=== PATIENT | female | born 1935 | race Caucasian/White ===

== ENCOUNTER 2021-07-24 22:36 | Inpatient (IN) | payer MEDICARE, OTHER, SELFPAY ==
--- NOTE | ~2021-07-24 | XR_ITS ---
EXAMINATION: XR chest 1V portable EXAM DATE: 07/25/2021 00:18 INDICATION: Weakness, fatigue. High blood glucose levels. TECHNIQUE: Portable AP frontal chest x-ray was obtained. Comparison is made to prior examination from 10/28/2018. FINDINGS: Small amount of apical scarring bilaterally. No confluent consolidation, pneumothorax or pl eural effusion suspected. Chronic hyperinflation. 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 Cardiomediastinal silhouette is normal. There are bony degenerative changes. IMPRESSION: Hyperinflation. No confluent consolidation. Reviewed, dictated and finalized at location A. OXIDE MILL TENDER
--- NOTE | ~2021-07-24 | US_ITS ---
EXAMINATION: US renal BI DATE: 07/25/2021 09:41 INDICATION: Acute kidney injury. TECHNIQUE: Multiple ultrasound grayscale images of the kidneys were obtained. COMPARISON: Chest CT 12/09/2018 FINDINGS: The right kidney measures 12.5 x 4.7 x 5.6 cm. The left kidney measures 11.6 x 4.9 x 5.7 cm. The kidn eys demonstrate normal parenchymal echogenicity. There are cysts in the kidneys measuring up to 1.7 c m on the left. There is no hydronephrosis. The bladder is normal. IMPRESSION: 1. Normal kidney sizes. No hydronephrosis. Reviewed, dictated and finalized at location B. MATIC BUFFER
--- NOTE | ~2021-07-24 | XR_ITS ---
EXAMINATION: XR hip LT 2V w AP pelvis DATE: 07/26/2021 09:30 INDICATION: Bilateral hip pain, left greater than right. TECHNIQUE: Anteroposterior view of the pelvis and anteroposterior and frog-leg lateral views of the l eft hip were obtained. COMPARISON: None. 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 Normal alignment in the pelvis and bilate ral hips. No fracture or suspected avascular necrosis. Osteoarthritis, mild at the bilateral hips and mild to moderate at the bilateral sacroiliac joints. Atherosclerotic calcific a cyst along the abdom inal aorta and multiple arteries in the pelvis and proximal thighs. IMPRESSION: 1. Mild bilateral hip osteoarthritis. 2. 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 2. 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 Reviewed, dictated and finalized at location A. E INSTALLER
--- NOTE | ~2021-07-24 | CT_ITS ---
EXAMINATION: CT brain wo con INDICATION: Confusion COMPARISON: 12/09/2018 TECHNIQUE: Standard unenhanced head CT. The dose-length product (DLP) was 605.33 mGy-cm. The mA was a djusted according to patient size. Iterative reconstruction technique was employed. FINDINGS: There is no acute intraparenchymal hemorrhage. No evidence of mass lesion. No evidence of a cute infarction. 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 There is mild periventric ular and subcortical hypodensity probably related to small vessel ischemic disease. There is mild pro minence of the sulci and ventricles related to cerebral atrophy. Intracranial calcified cerebral athe rosclerosis is noted. There are no extra-axial collections. There is no mass effect or midline shift. Changes in the globes are likely from ocular lens surgery. The visualized sinuses and mastoid air ce lls are well aerated. IMPRESSION: 1. No acute intracranial abnormality. 2. Age related findings. Reviewed, dictated and finalized at location F. AURANT RECRUITER
[2021-07-24 22:36] VITALS: BP 138/36; PULSE 88; RESP 26; TEMP 36.3; O2SAT 98
[2021-07-24 22:46] LABS: Glucose Point of Care > 500 mg/dl (65-105)
[2021-07-24] MEDS: SODIUM CHLORIDE 0.9% IV 1,000 ML 999 ML IV CONT ×2 (23:00→23:04)
[2021-07-24] MEDS: INSULIN HUMAN REGULAR (*BKC) 100 UNITS/ML 10 UNITS IV PUSH (23:04)
[2021-07-24 23:05] LABS: Basophils Absolute Auto 0.1 K/mm3 (0.0-0.1); Basophils Percent Auto 0.7 % (0.2-1.2); Hematocrit 35.3 % (37.0-47.0); Hemoglobin 11.8 g/dL (12.0-15.0); Immature Granulocyte Absolute 0.02 K/mm3 (0.00-0.031); Immature Granulocyte Percent A 0.3 % (0-0.5); Lymphocytes Absolute Auto 0.64 K/mm3 (0.9-3.2); Lymphocytes Percent Auto 8.9 % (18.3-44.2); Mean Corpuscular HGB Conc 33.4 g/dl (32-36); Mean Corpuscular Hemoglobin 34.6 pg (26-34); Mean Corpuscular Volume 103.5 fl (80-100); Monocytes Absolute Auto 0.2 K/mm3 (0.1-0.6); Monocytes Percent Auto 2.2 % (2.6-8.5); Neutrophils Absolute Auto 6.4 K/mm3 (1.3-6.7); Neutrophils Percent Auto 87.9 % (45.5-73.1); Platelet Count Result 346 k/mm3 (150-375); Red Blood Count 3.41 M/mm3 (4.2-5.4); Red Cell Distribution Width 15.7 % (11.5-14.5); White Blood Count 7.2 K/mm3 (4.5-10.0)
[2021-07-24 23:17] LABS: Alveolar/Arterial O2 Gradient 65.9 mmHg; Base Excess ABG -9.6 mEq/l (+/-2.0); Carboxyhemoglobin 0.3 % THb (0-2.0); Fractional Inspired Oxygen 28 %; HCO3 ABG 15.6 mEq/l (22.0-26.0); Methemoglobin ABG 0.3 %THb (0-1.5); Oxygen Content ABG 16.1 %vol (16.0-22.0); Oxygen Saturation ABG 96.8 % (95.0-100.0); Oxyhemoglobin 94.9 % THb (90.0-100.0); PO2 FiO2 Ratio Arterial Blood 3.43 %; Reduced Hemoglobin 4.5 %THb (0-5.0); pH ABG 7.306 (7.350-7.450)
[2021-07-24 23:18] LABS: Device NASAL CANNULA; Modified Allen's Test Pass; Site Drawn RIGHT RADIAL
[2021-07-24 23:20] LABS: Alanine Aminotransferase 21 U/L (4-35); Albumin Level 4.3 g/dL (3.5-5.1); Alkaline Phosphatase 62 U/L (38-126); Anion Gap 27 mmol/L (8-16); Aspartate Amino Transferase 40 U/L (14-36); Bilirubin,Total 0.7 mg/dL (0.2-1.3); Blood Urea Nitrogen 60 mg/dL (7-17); Calcium 10.9 mg/dL (8.4-10.2); Carbon Dioxide 16 mmol/L (22-30); Chloride 89 mmol/L (98-107); Estimated CRCL calculation 21 ml/min; Estimated Glomerular Filt Rate 31; Magnesium 1.4 mg/dL (1.6-2.3); Phosphorus 6.3 mg/dL (2.5-4.5); Potassium 4.6 mmol/L (3.4-5.0); Sodium 132 mmol/L (137-145)
[2021-07-24 23:25] LABS: Glucose 681 mg/dL (65-110)
[2021-07-24 23:55] LABS: Beta-Hydroxybutyrate/Acetoacetate 9.65 mmol/L (0.02-0.27)
[2021-07-24 23:59] VITALS: BP 135/52; PULSE 96; RESP 24; O2SAT 98
[2021-07-25] VITALS (13 sets, daily range): BP systolic 98–178; BP diastolic 40–93; PULSE 68–89; RESP 14–22; TEMP 36.7–37.1; O2SAT 92–98; BMI 27.8
[2021-07-25 00:11] LABS: Glucose Point of Care > 500 mg/dl (65-105)
[2021-07-25] MEDS: INSULIN HUMAN REGULAR (*BKC) 100 UNITS in SODIUM CHLORIDE 0.9% IV 99 ML 12 UNITS IV CONT (00:24)
[2021-07-25 00:30] LABS: Add Urine Microscopic? YES; Appearance Urine Clear (Clear); Bilirubin Urine Negative (Negative); Blood Urine Negative (Negative); Color Urine Yellow (Yellow); Glucose Urine UA 3+ mg/dL (Negative); Ketones Urine Trace mg/dL (Negative); Leukocyte Esterase Ur Negative LEU/UL (Negative); Mucus Urine Rare /lpf; Nitrate Urine Negative (Negative); Protein Urine Negative (Negative); RBC Urine 0-2 /hpf (0-2); Specific Grav Ur 1.011 (1.001-1.035); Squamous Epithelial Cell Urine Rare /hpf (Few); Urobilinogen Urine Negative mg/dL (<2.0); WBC Urine 0-3 /hpf
--- NOTE | 2021-07-25 00:34 | ED.GENADULT ---
HPI - General Adult General Chief complaint: Recheck/Abnormal Lab/Rx Stated complaint: elevated blood sugar Time Seen by Provider: 07/24/21 22:53 History of Present Illness HPI narrative: Patient 86-year-old female presents to emergency department with chief complaint of hyperglycemia. The family noticed that her blood sugars have been difficult to control over the last couple of days they believe that the patient's insulin may have been frozen. The patient's family know she has been weaker than normal and has had increased urination. The patient is not been running fever settled and nausea with this. Related Data Allergies Allergy/AdvReac Type Severity Reaction Status Date / Time adhesive Allergy Mild Itching Verified 02/11/20 12:50 cortisone Allergy Mild Verified 02/11/20 12:50 lactose Allergy Mild Verified 02/11/20 12:50 NSAIDS (Non-Steroidal Allergy Mild Verified 02/11/20 12:50 Anti-Inflamma Penicillins Allergy Mild Itching Verified 02/11/20 12:50 Review of Systems Review of Systems: A 10 system review of systems was completed on the patient and is negative except for what is stated in the HPI. Nursing and ancillary documentation was reviewed. Exam Narrative: GENERAL: Well-appearing, well-nourished, and in no acute distress. HEAD: Normocephalic, atraumatic. EYES: PERRLA and EOMI. ENT: Nares clear, no rhinorrhea or epistaxis. Mucous membranes moist. NECK: Supple. CHEST: Clear to auscultation. No respiratory distress. HEART: Regular rate and rhythm. No murmur heard. Normal peripheral pulses. ABDOMEN: Soft, nontender, nondistended, normal active bowel sounds. EXTREMITIES: Normal range of motion. No edema. SKIN: Warm, dry, no rash. NEURO: No focal deficits. Alert and oriented x3. PSYCH: Normal mood and affect. Course Vital Signs Vital signs: Vital Signs Temperature 36.3 C L 07/24/21 22:36 Pulse Rate 88 07/24/21 22:36 Respiratory Rate 26 H 07/24/21 22:36 Blood Pressure 138/36 L 07/24/21 22:36 Pulse Oximetry 98 07/24/21 22:36 Temperature 36.3 C L 07/24/21 22:36 Pulse Rate 96 07/24/21 23:59 Respiratory Rate 24 H 07/24/21 23:59 Blood Pressure 135/52 L 07/24/21 23:59 Pulse Oximetry 98 07/24/21 23:59 Medical Decision Making Vital Signs Vital Signs: Vital Signs Temperature 36.3 C L 07/24/21 22:36 Pulse Rate 88 07/24/21 22:36 Respiratory Rate 26 H 07/24/21 22:36 Blood Pressure 138/36 L 07/24/21 22:36 Pulse Oximetry 98 07/24/21 22:36 Temperature 36.3 C L 07/24/21 22:36 Pulse Rate 96 07/24/21 23:59 Respiratory Rate 24 H 07/24/21 23:59 Blood Pressure 135/52 L 07/24/21 23:59 Pulse Oximetry 98 07/24/21 23:59 Lab Data Result diagrams: 07/24/21 22:53 07/24/21 22:53 Labs: Lab Results 07/24/21 07/24/21 07/24/21 Range/Units 22:43 22:53 22:53 WBC 7.2 (4.5-10.0) K/mm3 RBC 3.41 L (4.2-5.4) M/mm3 Hgb 11.8 L (12.0-15.0) g/dL Hct 35.3 L (37.0-47.0) % MCV 103.5 H (80-100) fl MCH 34.6 H (26-34) pg MCHC 33.4 (32-36) g/dl RDW 15.7 H (11.5-14.5) % Plt Count 346 (150-375) k/mm3 MPV 11.0 H (7.4-10.4) fl Immature Gran % (Auto) 0.3 (0-0.5) % Neut % (Auto) 87.9 H (45.5-73.1) % Lymph % (Auto) 8.9 L (18.3-44.2) % Fountain % (Auto) 2.2 L (2.6-8.5) % Eos % (Auto) 0.0 (0-4.4) % Baso % (Auto) 0.7 (0.2-1.2) % Lymph # (Auto) 0.64 L (0.9-3.2) K/mm3 Fountain # (Auto) 0.2 (0.1-0.6) K/mm3 Eos # (Auto) 0.0 (0-0.3) K/mm3 Baso # (Auto) 0.1 (0.0-0.1) K/mm3 Abs Immat Gran (auto) 0.02 (0.00-0.031) K/mm3 Absolute Neuts (auto) 6.4 (1.3-6.7) K/mm3 Absolute Nucleated RBC 0.0 (0.0-0.012) K/mm3 Nucleated RBC % 0.0 (0.0-0.2) % Methemoglobin (0-1.5) %THb Sodium 132 L (137-145) mmol/L Potassium 4.6 (3.4-5.0) mmol/L Chloride 89 L (98-107) mmol/L Carbon Dioxide 16 L (22-30) mmol/L Anion Gap 27 H (8-16) mmol
[2021-07-25 00:46] LABS: Anion Gap 26 mmol/L (8-16); Blood Urea Nitrogen 59 mg/dL (7-17); Calcium 10.1 mg/dL (8.4-10.2); Carbon Dioxide 15 mmol/L (22-30); Chloride 94 mmol/L (98-107); Estimated CRCL calculation 24 ml/min; Estimated Glomerular Filt Rate 36; Glucose 567 mg/dL (65-110); Magnesium 1.3 mg/dL (1.6-2.3); Phosphorus 4.7 mg/dL (2.5-4.5); Potassium 3.6 mmol/L (3.4-5.0); Sodium 135 mmol/L (137-145)
[2021-07-25 00:51] LABS: Hemoglobin A1C 8.8 % (<5.7)
[2021-07-25 01:24] LABS: Glucose Point of Care > 500 mg/dl (65-105)
[2021-07-25 02:17] LABS: Glucose Point of Care 444 mg/dl (65-105)
--- NOTE | 2021-07-25 02:25 | ADMGEN ---
This patient, Atif Mendoza, was admitted to Intensive Care Unit-5. Patient/family oriented to hospital policies and general routines including ID bracelet, bed and alarms, visiting hours, pain management, procedures, bathroom and other care routines, personal items, smoking policy, room service/diet, and visiting hours. Information on how to activate the Rapid Response Team has been discussed. Patient/Family are encouraged to report perceived risks to care and to ask questions if they do not understand what they are told or what they should do.
[2021-07-25] MEDS: SODIUM CHLORIDE 0.9% IV 1,000 ML 150 ML IV CONT (02:50)
[2021-07-25 02:56] LABS: Glucose Point of Care 403 mg/dl (65-105)
[2021-07-25 04:05] LABS: Glucose Point of Care 356 mg/dl (65-105)
[2021-07-25 05:05] LABS: Anion Gap 19 mmol/L (8-16); Blood Urea Nitrogen 59 mg/dL (7-17); Calcium 10.4 mg/dL (8.4-10.2); Carbon Dioxide 22 mmol/L (22-30); Chloride 99 mmol/L (98-107); Estimated CRCL calculation 32 ml/min; Estimated Glomerular Filt Rate 43; Glucose 332 mg/dL (65-110); Potassium 3.2 mmol/L (3.4-5.0); Sodium 140 mmol/L (137-145)
[2021-07-25] MEDS: KCL 20 MEQ/D5/0.45% SOD CHL 1,000 ML 150 ML IV CONT (06:09)
[2021-07-25 06:13] LABS: Glucose Point of Care 171 mg/dl (65-105)
[2021-07-25 06:13] LABS: Glucose Point of Care 251 mg/dl (65-105)
--- NOTE | 2021-07-25 07:53 | PM.IMHP ---
H&P: HPI History of Present Illness Date/Time: 07/25/21 07:53 Chief Complaint: 1. Generalized weakness 2. High sugar Narrative: 86 years old female was admitted to the emergency room for the management of DKA in the ICU. According to the patient and review of medical records, patient was doing fine until few days ago at home when she started having increased urination, denies weakness. According to the family patient and at the insulin or her insulin was not working properly. Patient complains of having generalized weakness and high sugar at home otherwise she denies any fever or chills. Patient has mild nausea but no vomiting. Patient denies any shortness of breath or chest pain. Patient denies any exposure to COVID. Patient was given insulin the ER and IV fluids and was transferred to ICU for further management. At present patient is feeling much better and lying comfortably in the bed. Review of Systems Review of Systems: All systems reviewed & are unremarkable except as noted in HPI and below (the history and physical examination.) [facility] Social History Social History Years smoked: 65 Smoking status: Current every day smoker Tobacco type: cigarettes Alcohol intake: former Substance use: never Spiritual care concerns: No Meds Home Medications and Allergies Home Medications Medication Instructions Recorded Confirmed Type acetaminophen [Tylenol] 650 mg PO ONCE PRN 07/25/21 07/25/21 History amlodipine 2.5 mg PO DAILY 07/25/21 07/25/21 History aspirin 81 mg PO DAILY 07/25/21 07/25/21 History cholecalciferol (vitamin D3) 125 mcg PO DAILY 07/25/21 07/25/21 History [Vitamin D3] clopidogrel [Plavix] 75 mg PO DAILY 07/25/21 07/25/21 History duloxetine [Cymbalta] 20 mg PO DAILY 07/25/21 07/25/21 History fenofibrate 160 mg PO DAILY 07/25/21 07/25/21 History furosemide [Lasix] 40 mg PO DAILY 07/25/21 07/25/21 History glucosamine sulfate [Glucosamine] 500 mg PO DAILY 07/25/21 07/25/21 History insulin aspart U-100 [Novolog See Rx Instructions .ROUTE .COMPLEX 07/25/21 07/25/21 History U-100 Insulin aspart] insulin glargine [Lantus Solostar 15 unit SUBCUT QAM 07/25/21 07/25/21 History U-100 Insulin] isosorbide dinitrate [Isordil] 20 mg PO TID 07/25/21 07/25/21 History lisinopril 10 mg PO DAILY 07/25/21 07/25/21 History metformin 1,000 mg PO BID 07/25/21 07/25/21 History metoprolol tartrate [Lopressor] 50 mg PO BID 07/25/21 07/25/21 History omega-3 fatty acids [Fish Oil] 2,000 mg PO DAILY 07/25/21 07/25/21 History pregabalin [Lyrica] 75 mg PO AC 07/25/21 07/25/21 History pregabalin [Lyrica] 150 mg PO HS 07/25/21 07/25/21 History simvastatin 10 mg PO HS 07/25/21 07/25/21 History vitamin A-vitamin C-vit E-min 1 tablet PO DAILY 07/25/21 07/25/21 History [Ocuvite] Allergies Allergy/AdvReac Type Severity Reaction Status Date / Time adhesive Allergy Mild Itching Verified 02/11/20 12:50 cortisone Allergy Mild Verified 02/11/20 12:50 lactose Allergy Mild Verified 02/11/20 12:50 NSAIDS (Non-Steroidal Allergy Mild Verified 02/11/20 12:50 Anti-Inflamma Penicillins Allergy Mild Itching Verified 02/11/20 12:50 Vital Signs Vital Signs - 24 hr 07/24/21 22:36 07/24/21 23:59 07/25/21 01:56 Temperature 36.3 C L Pulse Rate 88 96 87 Respiratory Rate 26 H 24 H 18 Blood Pressure 138/36 L 135/52 L 116/42 L Pulse Oximetry 98 98 92 07/25/21 02:23 07/25/21 02:44 07/25/21 04:00 Temperature 37.1 C Pulse Rate 86 89 83 Respiratory Rate 19 20 16 Blood Pressure 140/48 L 155/61 H 132/55 L Pulse Oximetry 96 95 98 07/25/21 06:00 Temperature Pulse Rate 81 Respiratory Rate 16 Blood Pressure 110/40 L Pulse Oximetry 95 Exam Narrative: GENERAL: Well-appearing, well-nourished, and in no acute distress. HEAD: Normocephalic, atraumatic. EYES: PERRLA and EOMI. ENT: Nares clear, no rhinorrhea or epistaxis. Mucous membranes moist. NECK: Supple. CHEST: Cl
[2021-07-25 08:11] LABS: Glucose Point of Care 153 mg/dl (65-105)
[2021-07-25 08:22] LABS: Glucose Point of Care 138 mg/dl (65-105)
--- NOTE | 2021-07-25 09:03 | WPDCNINT ---
Assessment and Plan Assessment and plan (1) DKA (diabetic ketoacidosis): Qualifiers: Diabetes mellitus complication detail: without coma Diabetes mellitus type: other specified (including AUDREY) Qualified Code(s): E13.10 - Other specified diabetes mellitus with ketoacidosis without coma Code(s): E11.10 - Type 2 diabetes mellitus with ketoacidosis without coma Status: Acute Assessment and Plan: IVF bolus given in ED and and now on infusion Insulin infusion and Q1H glucose monitoring Serial labs are ordered Replace electrolytes as needed -potassium replacement is ordered Will transition to SC insulin once AG is closed Hold Lasix (2) Essential hypertension: Code(s): I10 - Essential (primary) hypertension Status: Acute Assessment and Plan: Resume Norvasc once blood pressure is elevated at this time patient is in controlled range and will monitor (3) CAD (coronary artery disease): Code(s): I25.10 - Atherosclerotic heart disease of [place] coronary artery without angina pectoris Status: Acute Assessment and Plan: Continue aspirin Plavix Hold Imdur lisinopril and metoprolol to soft blood pressure Will resume as blood pressure improves (4) Dyslipidemia: Code(s): E78.5 - Hyperlipidemia, unspecified Status: Acute Assessment and Plan: Continue Zocor (5) Acute kidney injury: Code(s): N17.9 - Acute kidney failure, unspecified Status: Acute Assessment and Plan: Patient presented with elevated creatinine of 1.6 this is likely from dehydration. Patient was also on WALDEMAR-inhibitor and Lasix which have been discontinued Creatinine is already improving is 1.2 this morning. Last baseline recorded is 0.8 from 2019 Monitor urine output electrolytes and creatinine Check CK and renal ultrasound (6) Dehydration: Code(s): E86.0 - Dehydration Status: Acute Additional Plan DVT prophylaxis -heparin subQ Nutrition -currently NPO will advance diet during the day today Code Status -patient is DNR Total Critical Care Time - 30 minutes Due to a high probability of clinically significant, life threatening deterioration, the patient required my highest level of preparedness to intervene emergently and I personally spent this critical care time directly and personally managing the patient. This critical care time included obtaining a history; examining the patient; pulse oximetry; ordering and review of studies; arranging urgent treatment with development of a management plan; evaluation of patient's response to treatment; frequent reassessment; and discussions with other providers. It was exclusive of separately billable procedures and treating other patients and teaching time. Please see Assessment and Plan section and the rest of the note for further information on patient assessment and treatment Account Strategist Consult Note Consult date: 07/25/21 HPI: Atif Mendoza is a 86 year old female with past medical history of diabetes hyperlipidemia hypertension coronary artery disease who was brought by her family last night to ER with elevated blood sugars. In the ED patient's family reported the patient has been having high blood sugars and was having increased urination and was weak. They denied any other complaints. Patient was diagnosed with DKA and was started on IV fluids and IV insulin infusion and admitted to ICU for further evaluation management. This morning when I saw the patient she is arousable but she is a poor historian and does not know why she is in the hospital. History obtained from chart and Physician sign out. Patient is pleasantly confused and AO x0. On asking direct motion she denies any pain shortness of breath nausea vomiting abdominal pain. As well mentioned limited her review of system was obtainable Past medical history-diabetes coronary disease and hypertension Family history-unobtainable Review of Systems Review
[2021-07-25 09:16] LABS: Glucose Point of Care 121 mg/dl (65-105)
[2021-07-25 09:55] LABS: Creatine Kinase 232 U/L (30-135)
[2021-07-25 09:57] LABS: Anion Gap 4 mmol/L (8-16); Blood Urea Nitrogen 60 mg/dL (7-17); Calcium 9.7 mg/dL (8.4-10.2); Carbon Dioxide 34 mmol/L (22-30); Chloride 102 mmol/L (98-107); Estimated CRCL calculation 38 ml/min; Estimated Glomerular Filt Rate 53; Glucose 112 mg/dL (65-110); Potassium 3.1 mmol/L (3.4-5.0); Sodium 140 mmol/L (137-145)
[2021-07-25 10:23] LABS: Glucose Point of Care 110 mg/dl (65-105)
[2021-07-25 11:11] LABS: Glucose Point of Care 73 mg/dl (65-105)
[2021-07-25] MEDS: POTASSIUM CHLORIDE INJ 40 MEQ in SODIUM CHLORIDE 0.9% IV 500 ML 80 MEQ IVPB (11:12)
[2021-07-25] MEDS: HEPARIN SODIUM 5,000 UNITS/ML VIAL 5000 UNITS SUB-Q ×2 (11:13→20:25)
--- NOTE | 2021-07-25 11:58 | PCFNICU ---
ICU Rounding Note: Pt current nutrition is NPO. Last recorded weight is 76 kg,stable Bowel Motility:No BM reported. Labs Reviewed:Glu 332, Cr 1.2,BUN 59, K 3.2, HbA1c 8.8% Meds Noted:Potassium Chloride, Heparin. Skin:WNL Additional Notes: Spoke with nursing today, Patient is NPO. Very drowsy. DKA consult. CGM for glucose monitoring at home. When diet order advanced would recommend a diabetic consistent carb diet. Following daily in ICU rounds.
[2021-07-25] MEDS: ASPIRIN 81 MG CHEWABLE TABLET PO (12:14)
[2021-07-25] MEDS: CLOPIDOGREL BISULFATE 75 MG TABLET PO (12:14)
[2021-07-25] MEDS: FENOFIBRATE 160 MG TABLET PO (12:14)
[2021-07-25] MEDS: CHOLECALCIFEROL 1,000 UNITS TABLET 5000 UNITS PO (12:14)
[2021-07-25] MEDS: OMEGA 3 POLYUNSAT FATTY ACIDS 1 GM CAP 2 GM PO (12:14)
[2021-07-25] MEDS: DULoxetine HCL 20 MG CAPSULE.DR PO (12:14)
[2021-07-25] MEDS: OPTI-GEN TAB 1 TABLET PO (12:15)
[2021-07-25 12:45] LABS: Glucose Point of Care 121 mg/dl (65-105)
[2021-07-25] MEDS: INSULIN GLARGINE (*BKC) 100 UNITS/ML 15 UNITS SUB-Q ×2 (13:10→20:23)
[2021-07-25] MEDS: KCL 20 MEQ/0.45% NS 1,000 ML 150 ML IV CONT (13:25)
[2021-07-25 13:42] LABS: Anion Gap 14 mmol/L (8-16); Blood Urea Nitrogen 54 mg/dL (7-17); Calcium 9.9 mg/dL (8.4-10.2); Carbon Dioxide 27 mmol/L (22-30); Chloride 99 mmol/L (98-107); Estimated CRCL calculation 34 ml/min; Estimated Glomerular Filt Rate 47; Glucose 173 mg/dL (65-110); Potassium 3.7 mmol/L (3.4-5.0); Sodium 140 mmol/L (137-145)
[2021-07-25 16:11] LABS: Glucose Point of Care 226 mg/dl (65-105)
[2021-07-25] MEDS: INSULIN ASPART (*BKC) 100 UNITS/ML SUB-Q ×2 (17:36→20:24)
[2021-07-25 19:08] LABS: Anion Gap 15 mmol/L (8-16); Blood Urea Nitrogen 51 mg/dL (7-17); Calcium 9.6 mg/dL (8.4-10.2); Carbon Dioxide 23 mmol/L (22-30); Chloride 99 mmol/L (98-107); Estimated CRCL calculation 38 ml/min; Estimated Glomerular Filt Rate 53; Glucose 258 mg/dL (65-110); Potassium 3.9 mmol/L (3.4-5.0); Sodium 137 mmol/L (137-145)
[2021-07-25] MEDS: SIMVASTATIN 10 MG TABLET PO (20:25)
[2021-07-25 20:51] LABS: Glucose Point of Care 253 mg/dl (65-105)
[2021-07-25 23:19] LABS: Glucose Point of Care 232 mg/dl (65-105)
[2021-07-26] MEDS: INSULIN ASPART (*BKC) 100 UNITS/ML SUB-Q ×4 (00:22→21:50)
[2021-07-26 00:46] VITALS: BP 156/63
[2021-07-26 04:59] LABS: Hematocrit 30.6 % (37.0-47.0); Mean Corpuscular HGB Conc 35.9 g/dl (32-36); Mean Corpuscular Hemoglobin 35.1 pg (26-34); Mean Corpuscular Volume 97.8 fl (80-100); Mean Platelet Volume 10.5 fl (7.4-10.4); Platelet Count Result 314 k/mm3 (150-375); Red Blood Count 3.13 M/mm3 (4.2-5.4); Red Cell Distribution Width 15.9 % (11.5-14.5); White Blood Count 10.4 K/mm3 (4.5-10.0)
[2021-07-26 05:28] LABS: Alanine Aminotransferase 17 U/L (4-35); Albumin Level 2.9 g/dL (3.5-5.1); Alkaline Phosphatase 45 U/L (38-126); Anion Gap 3 mmol/L (8-16); Aspartate Amino Transferase 33 U/L (14-36); Bilirubin,Total 0.6 mg/dL (0.2-1.3); Blood Urea Nitrogen 43 mg/dL (7-17); Calcium 8.8 mg/dL (8.4-10.2); Carbon Dioxide 30 mmol/L (22-30); Chloride 103 mmol/L (98-107); Estimated CRCL calculation 46 ml/min; Estimated Glomerular Filt Rate > 60; Glucose 44 mg/dL (65-110); Potassium 3.7 mmol/L (3.4-5.0); Sodium 136 mmol/L (137-145)
[2021-07-26] MEDS: DEXTROSE 50% 25 GM/50 ML SYRINGE IV PUSH (05:35)
[2021-07-26 05:53] LABS: Glucose Point of Care 114 mg/dl (65-105)
[2021-07-26 08:00] VITALS: BP 177/71; PULSE 80; RESP 16; TEMP 36.4; O2SAT 100
[2021-07-26 08:29] LABS: Glucose Point of Care 58 mg/dl (65-105)
[2021-07-26 09:03] LABS: Glucose Point of Care 116 mg/dl (65-105)
[2021-07-26] MEDS: ASPIRIN 81 MG CHEWABLE TABLET PO (09:20)
[2021-07-26] MEDS: CHOLECALCIFEROL 1,000 UNITS TABLET 5000 UNITS PO (09:20)
[2021-07-26] MEDS: HEPARIN SODIUM 5,000 UNITS/ML VIAL 5000 UNITS SUB-Q ×2 (09:21→22:36)
[2021-07-26] MEDS: FENOFIBRATE 160 MG TABLET PO (09:21)
[2021-07-26] MEDS: DULoxetine HCL 20 MG CAPSULE.DR PO (09:21)
[2021-07-26] MEDS: CLOPIDOGREL BISULFATE 75 MG TABLET PO (09:21)
[2021-07-26] MEDS: OMEGA 3 POLYUNSAT FATTY ACIDS 1 GM CAP 2 GM PO (09:22)
[2021-07-26] MEDS: OPTI-GEN TAB 1 TABLET PO (09:23)
--- NOTE | 2021-07-26 11:58 | PM.IMPN ---
Progress Note: A&P Assessment and Plan (1) DKA (diabetic ketoacidosis): Qualifiers: Diabetes mellitus complication detail: without coma Diabetes mellitus type: other specified (including AUDREY) Qualified Code(s): E13.10 - Other specified diabetes mellitus with ketoacidosis without coma Code(s): E11.10 - Type 2 diabetes mellitus with ketoacidosis without coma Status: Acute Assessment and Plan: Patient was given IVF bolus in ED and and started on infusion Anion gap has now closed and patient has been transitioned to subcutaneous insulin Patient is now taking p.o. diet Lasix has been discontinued patient was dehydrated on presentation (2) Diabetes mellitus: Code(s): E11.9 - Type 2 diabetes mellitus without complications Status: Acute Assessment and Plan: Blood sugar low early this morning hence will adjust Lantus and change it to 20 units q.h.s. Continue sliding scale Consult visual educator (3) Essential hypertension: Code(s): I10 - Essential (primary) hypertension Status: Acute Assessment and Plan: Resume metoprolol and WALDEMAR-inhibitor. Will resume Norvasc and Imdur as blood pressure allows (4) CAD (coronary artery disease): Code(s): I25.10 - Atherosclerotic heart disease of [place] coronary artery without angina pectoris Status: Acute Assessment and Plan: Continue aspirin Plavix Resume Imdur lisinopril and metoprolol as allowed by blood pressure (5) Dyslipidemia: Code(s): E78.5 - Hyperlipidemia, unspecified Status: Acute Assessment and Plan: Continue Zocor (6) Acute kidney injury: Code(s): N17.9 - Acute kidney failure, unspecified Status: Acute Assessment and Plan: Patient presented with elevated creatinine of 1.6 this is likely from dehydration. Patient was also on WALDEMAR-inhibitor and Lasix which have been discontinued Creatinine i has normalized Monitor urine output electrolytes and creatinine Normal CK and renal ultrasound (7) Dehydration: Code(s): E86.0 - Dehydration Status: Acute Assessment and Plan: Resolved (8) Hip pain: Code(s): M25.559 - Pain in unspecified hip Status: Acute Assessment and Plan: Patient complains of hip pain on walking. Likely from arthritis X-ray left hip IMPRESSION: 1. Mild bilateral hip osteoarthritis. 2. 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 2. 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 She is AO x2. She states that her insulin was freezing in her Fridge and hence was not sure if it was working. She states her sugars were high at home. Review of system was positive for pain in the left hip on walking. Denies any other complaints at this time. Patient denies fever, chest pain, shortness of breath, cough, nausea vomiting, abdominal pain,, diarrhea, headache or constipation. All the systems were reviewed and were negative Review of Systems Review of Systems: All systems reviewed & are unremarkable except as noted in HPI and below (HPI) Exam Narrative: General: Pt is alert awake and in NAD Lungs/Chest: Trachea central Clear BS B/L, No crackles or wheezing. Cardiac: RRR. Normal S1 S2. No murmurs Circulation: Pedal pulses are intact and symmetrical. Abdomen: Normal bowel sounds.. Soft. NT. ND. Extremities: No clubbing, cyanosis or edema. Warm : Anderson in place Neurologic: Follows commands. Moves all 4 extremities PERRL AO x2 Skin: No Rash MSK: No tenderness on hip bilaterally Objective Data Vital Signs Vital Signs: Vital Signs - 24 hr 07/25/21 12:00 07/25/21 14:00 07/25/21 16:00 Temperature 36.8 C 36.8 C Pulse Rate 80 80 78 Respiratory Rate 20 22 H 20 Blood Pre
[2021-07-26 12:15] LABS: Glucose Point of Care 221 mg/dl (65-105)
--- NOTE | 2021-07-26 12:18 | PCFNICU ---
ICU Rounding Note: Pt current nutrition is Diabetic Consistent Carb. Last recorded weight is 76.1 kg-stable Bowel Motility:No BM reported at this time. Labs Reviewed:Glu 44, BUN 43, NA 136, Hct 30.6,Hgb 11.0 Meds Noted:Plavix,Cymbalta, Heparin, Lovaza, Vit D Skin: WNL Additional Notes: Spoke with nursing today. Patient has started on oral diet of Diabetic diet. Oral Intake improving greater than 75% of meals. confused at time. Does use a CGM at home. Last HbA1c 8.8% 07/25/20. Agree with diet orders. No further nutritional interventions needed at this time.
[2021-07-26 16:19] LABS: Glucose Point of Care 316 mg/dl (65-105)
--- NOTE | 2021-07-26 18:42 | PC.NURSE ---
This patient, Atif Mendoza, was received from ICU on 07/26/21 at 1843. Patient/family oriented to unit policies and routines
[2021-07-26 20:13] LABS: Glucose Point of Care 378 mg/dl (65-105)
[2021-07-26 20:30] VITALS: PULSE 68; RESP 18; O2SAT 96
[2021-07-26] MEDS: INSULIN GLARGINE (*BKC) 100 UNITS/ML 20 UNITS SUB-Q (21:48)
[2021-07-26 22:00] VITALS: BP 165/59; PULSE 84; RESP 18; TEMP 36.4; O2SAT 96
[2021-07-26 22:34] VITALS: PULSE 68
[2021-07-26] MEDS: METOPROLOL TARTRATE 50 MG TAB PO (22:34)
[2021-07-26] MEDS: SIMVASTATIN 10 MG TABLET PO (22:36)
--- NOTE | 2021-07-27 04:52 | ADMGEN ---
This patient, Atif Mendoza, was admitted to 3 Med Surg Room 319-01. Patient/family oriented to hospital policies and general routines including ID bracelet, bed and alarms, visiting hours, pain management, procedures, bathroom and other care routines, personal items, smoking policy, room service/diet, and visiting hours. Information on how to activate the Rapid Response Team has been discussed. Patient/Family are encouraged to report perceived risks to care and to ask questions if they do not understand what they are told or what they should do. 07/26/21 1120 Pt C/O money missing from her purse. Stated she had approximately 140 dollars. Pt agreed to let me count the money in her wallet in front of her. 94 dollars were counted. I offered to put Pts purse in the safe but PT wanted to keep it with her & declined the offer.
[2021-07-27 08:30] VITALS: BP 178/60; PULSE 69; O2SAT 95
[2021-07-27 08:31] VITALS: PULSE 69
[2021-07-27] MEDS: amLODIPine BESYLATE 2.5 MG TABLET PO (08:31)
[2021-07-27] MEDS: OMEGA 3 POLYUNSAT FATTY ACIDS 1 GM CAP 2 GM PO (08:31)
[2021-07-27] MEDS: CLOPIDOGREL BISULFATE 75 MG TABLET PO (08:31)
[2021-07-27] MEDS: METOPROLOL TARTRATE 50 MG TAB PO ×2 (08:31→22:16)
[2021-07-27] MEDS: FENOFIBRATE 160 MG TABLET PO (08:31)
[2021-07-27] MEDS: OPTI-GEN TAB 1 TABLET PO (08:31)
[2021-07-27] MEDS: ASPIRIN 81 MG CHEWABLE TABLET PO (08:31)
[2021-07-27] MEDS: CHOLECALCIFEROL 1,000 UNITS TABLET 5000 UNITS PO (08:32)
[2021-07-27] MEDS: HEPARIN SODIUM 5,000 UNITS/ML VIAL 5000 UNITS SUB-Q ×2 (08:32→22:09)
--- NOTE | 2021-07-27 08:41 | PC.NURSE ---
Patient has purse and wallet at bedside. I personally count her guajardo with her present. She has $94.
[2021-07-27 08:53] LABS: Glucose Point of Care 128 mg/dl (65-105)
[2021-07-27] MEDS: lisinopriL 10 MG TABLET PO (09:29)
--- NOTE | 2021-07-27 10:35 | PM.IMPN ---
Progress Note: A&P Assessment and Plan (1) DKA (diabetic ketoacidosis): Qualifiers: Diabetes mellitus complication detail: without coma Diabetes mellitus type: other specified (including AUDREY) Qualified Code(s): E13.10 - Other specified diabetes mellitus with ketoacidosis without coma Code(s): E11.10 - Type 2 diabetes mellitus with ketoacidosis without coma Status: Acute Assessment and Plan: Status post DKA protocols treated in ICU patient transferred to medical floor Continue Lantus insulin sliding scale re-evaluate in a.m. (2) Diabetes mellitus: Code(s): E11.9 - Type 2 diabetes mellitus without complications Status: Acute Assessment and Plan: Continue Lantus and insulin sliding scale and adjust as needed (3) Essential hypertension: Code(s): I10 - Essential (primary) hypertension Status: Acute Assessment and Plan: Resume metoprolol and WALDEMAR-inhibitor. Will resume Norvasc and Imdur as blood pressure allows (4) CAD (coronary artery disease): Code(s): I25.10 - Atherosclerotic heart disease of [place] coronary artery without angina pectoris Status: Acute Assessment and Plan: Continue aspirin Plavix Resume Imdur lisinopril and metoprolol as allowed by blood pressure (5) Dyslipidemia: Code(s): E78.5 - Hyperlipidemia, unspecified Status: Acute Assessment and Plan: Continue Zocor (6) Acute kidney injury: Code(s): N17.9 - Acute kidney failure, unspecified Status: Acute Assessment and Plan: Most likely related to dehydration improved renal ultrasound no significant finding (7) Dehydration: Code(s): E86.0 - Dehydration Status: Acute Assessment and Plan: Resolved (8) Hip pain: Code(s): M25.559 - Pain in unspecified hip Status: Acute Assessment and Plan: Patient complains of hip pain on walking. Likely from arthritis X-ray left hip IMPRESSION: 1. Mild bilateral hip osteoarthritis. 2. 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 2. 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 PT evaluation Subjective Date/time seen: 07/27/21 10:35 Interval history: 86 years old female with past medical history of hypertension diabetes on insulin presented to the hospital with generalized weakness increased urination patient was found to have a DKA was treated in ICU with DKA protocol patient condition improved she was started on Lantus and insulin sliding scale patient has episodes of hypoglycemia and hyperglycemia her blood sugar is labile patient blood sugar ranging between 100 to 300 Patient has episodes of hallucination Patient denies fever headache chest pain shortness of breath I am seeing the patient for diabetes Exam Narrative: Alert Chest no wheeze crackles Abdomen nontender nondistended CVS S1 + S2 Lower extremity edema Objective Data Vital Signs Vital Signs: Vital Signs - 24 hr 07/26/21 20:30 07/26/21 22:00 07/26/21 22:34 Temperature 97.5 F L Pulse Rate 68 84 68 Respiratory Rate 18 18 Blood Pressure 165/59 H Pulse Oximetry 96 96 07/27/21 08:30 07/27/21 08:31 Temperature Pulse Rate 69 69 Respiratory Rate Blood Pressure 178/60 H Pulse Oximetry 95 Intake/Output Intake/Output: Intake & Output 07/24/21 07/25/21 07/26/21 07/27/21 23:59 23:59 23:59 23:59 Intake Total 1999 1445 2160 270 Output Total 1700 600 Balance 1999 -255 1560 270 Meds/Results Medications: Active Medications Generic Name Dose Route Start Last Admin Trade Name Freq PRN Reason Stop Dose Admin Acetaminophen 650 mg 07/26/21 08:01 Acetaminophen 325 Mg Tablet PO Q4H PRN Headache, Fever or Pain Amlodipine Besylate 2.5 mg 07/25/21 09:00 07/27/21 08:31 Amlodipine Besylate 2.5 Mg Tablet PO 2.5 mg DAILY SHAN Administration Aspirin 81 mg 07/25/21 09:00 07/27/21 08:31 Aspirin 81 Mg Chewable Tablet
[2021-07-27 10:51] LABS: Basophils Absolute Auto 0.1 K/mm3 (0.0-0.1); Basophils Percent Auto 1.1 % (0.2-1.2); Eosinophils Absolute Auto 0.2 K/mm3 (0-0.3); Eosinophils Percent Auto 4.6 % (0-4.4); Hematocrit 31.5 % (37.0-47.0); Immature Granulocyte Absolute 0.01 K/mm3 (0.00-0.031); Immature Granulocyte Percent A 0.2 % (0-0.5); Lymphocytes Absolute Auto 1.16 K/mm3 (0.9-3.2); Lymphocytes Percent Auto 25.2 % (18.3-44.2); Mean Corpuscular HGB Conc 34.9 g/dl (32-36); Mean Corpuscular Hemoglobin 34.8 pg (26-34); Mean Corpuscular Volume 99.7 fl (80-100); Monocytes Absolute Auto 0.5 K/mm3 (0.1-0.6); Monocytes Percent Auto 11.1 % (2.6-8.5); Neutrophils Absolute Auto 2.7 K/mm3 (1.3-6.7); Neutrophils Percent Auto 57.8 % (45.5-73.1); Platelet Count Result 255 k/mm3 (150-375); Red Blood Count 3.16 M/mm3 (4.2-5.4); Red Cell Distribution Width 15.7 % (11.5-14.5); White Blood Count 4.6 K/mm3 (4.5-10.0)
[2021-07-27 11:12] LABS: Alanine Aminotransferase 20 U/L (4-35); Albumin Level 3.2 g/dL (3.5-5.1); Alkaline Phosphatase 47 U/L (38-126); Anion Gap 4 mmol/L (8-16); Aspartate Amino Transferase 34 U/L (14-36); Bilirubin,Total 0.5 mg/dL (0.2-1.3); Blood Urea Nitrogen 19 mg/dL (7-17); Calcium 8.7 mg/dL (8.4-10.2); Carbon Dioxide 30 mmol/L (22-30); Chloride 102 mmol/L (98-107); Estimated CRCL calculation 61 ml/min; Estimated Glomerular Filt Rate > 60; Glucose 138 mg/dL (65-110); Potassium 3.4 mmol/L (3.4-5.0); Sodium 136 mmol/L (137-145)
[2021-07-27] MEDS: ONDANSETRON INJ 4 MG/2 ML VIAL IV PUSH ×2 (11:23→19:53)
[2021-07-27 12:19] LABS: Glucose Point of Care 148 mg/dl (65-105)
[2021-07-27 14:00] VITALS: BP 170/82; BP 172/70; PULSE 70; RESP 20; TEMP 36.8; O2SAT 98
[2021-07-27 17:00] LABS: Glucose Point of Care 222 mg/dl (65-105)
[2021-07-27] MEDS: INSULIN ASPART (*BKC) 100 UNITS/ML SUB-Q ×2 (17:21→22:10)
[2021-07-27 20:15] VITALS: PULSE 82; RESP 18; O2SAT 96
[2021-07-27 21:44] LABS: Glucose Point of Care 288 mg/dl (65-105)
[2021-07-27 22:00] VITALS: BP 182/79; PULSE 79; RESP 18; TEMP 36.3; O2SAT 96
[2021-07-27] MEDS: DULoxetine HCL 20 MG CAPSULE.DR PO (22:09)
[2021-07-27] MEDS: INSULIN GLARGINE (*BKC) 100 UNITS/ML 20 UNITS SUB-Q (22:10)
[2021-07-27 22:16] VITALS: PULSE 82
[2021-07-27] MEDS: SIMVASTATIN 10 MG TABLET PO (22:17)
[2021-07-27] MEDS: PREGABALIN (*CRX) 75 MG CAPSULE 150 MG PO (22:21)
[2021-07-28] VITALS (7 sets, daily range): BP systolic 119–150; BP diastolic 59–73; PULSE 58–67; RESP 16–18; TEMP 36.3–36.6; O2SAT 92–98
[2021-07-28] MEDS: PREGABALIN (*CRX) 75 MG CAPSULE PO ×3 (06:19→17:45)
[2021-07-28 07:25] LABS: Basophils Percent Auto 0.6 % (0.2-1.2); Eosinophils Absolute Auto 0.1 K/mm3 (0-0.3); Eosinophils Percent Auto 1.1 % (0-4.4); Hematocrit 31.8 % (37.0-47.0); Immature Granulocyte Absolute 0.02 K/mm3 (0.00-0.031); Immature Granulocyte Percent A 0.3 % (0-0.5); Lymphocytes Absolute Auto 1.57 K/mm3 (0.9-3.2); Lymphocytes Percent Auto 23.9 % (18.3-44.2); Mean Corpuscular HGB Conc 34.6 g/dl (32-36); Mean Corpuscular Hemoglobin 34.8 pg (26-34); Mean Corpuscular Volume 100.6 fl (80-100); Mean Platelet Volume 10.5 fl (7.4-10.4); Monocytes Absolute Auto 0.7 K/mm3 (0.1-0.6); Monocytes Percent Auto 10.8 % (2.6-8.5); Neutrophils Absolute Auto 4.2 K/mm3 (1.3-6.7); Neutrophils Percent Auto 63.3 % (45.5-73.1); Platelet Count Result 253 k/mm3 (150-375); Red Blood Count 3.16 M/mm3 (4.2-5.4); Red Cell Distribution Width 15.8 % (11.5-14.5); White Blood Count 6.6 K/mm3 (4.5-10.0)
[2021-07-28 07:42] LABS: Alanine Aminotransferase 20 U/L (4-35); Albumin Level 3.2 g/dL (3.5-5.1); Alkaline Phosphatase 48 U/L (38-126); Anion Gap 8 mmol/L (8-16); Aspartate Amino Transferase 32 U/L (14-36); Bilirubin,Total 0.6 mg/dL (0.2-1.3); Blood Urea Nitrogen 17 mg/dL (7-17); Calcium 8.5 mg/dL (8.4-10.2); Carbon Dioxide 29 mmol/L (22-30); Chloride 99 mmol/L (98-107); Estimated CRCL calculation 41 ml/min; Estimated Glomerular Filt Rate > 60; Glucose 189 mg/dL (65-110); Potassium 3.5 mmol/L (3.4-5.0); Sodium 136 mmol/L (137-145)
[2021-07-28] MEDS: OPTI-GEN TAB 1 TABLET PO (08:03)
[2021-07-28] MEDS: ASPIRIN 81 MG CHEWABLE TABLET PO (08:03)
[2021-07-28] MEDS: OMEGA 3 POLYUNSAT FATTY ACIDS 1 GM CAP 2 GM PO (08:03)
[2021-07-28] MEDS: CLOPIDOGREL BISULFATE 75 MG TABLET PO (08:03)
[2021-07-28] MEDS: lisinopriL 10 MG TABLET PO (08:03)
[2021-07-28] MEDS: CHOLECALCIFEROL 1,000 UNITS TABLET 5000 UNITS PO (08:03)
[2021-07-28] MEDS: HEPARIN SODIUM 5,000 UNITS/ML VIAL 5000 UNITS SUB-Q ×2 (08:04→21:06)
[2021-07-28] MEDS: FENOFIBRATE 160 MG TABLET PO (08:04)
[2021-07-28] MEDS: amLODIPine BESYLATE 2.5 MG TABLET PO (08:04)
[2021-07-28 08:45] LABS: Glucose Point of Care 188 mg/dl (65-105)
[2021-07-28] MEDS: METOPROLOL TARTRATE 50 MG TAB PO ×2 (10:18→21:07)
--- NOTE | 2021-07-28 10:48 | PM.IMPN ---
Progress Note: A&P Assessment and Plan (1) DKA (diabetic ketoacidosis): Qualifiers: Diabetes mellitus complication detail: without coma Diabetes mellitus type: other specified (including AUDREY) Qualified Code(s): E13.10 - Other specified diabetes mellitus with ketoacidosis without coma Code(s): E11.10 - Type 2 diabetes mellitus with ketoacidosis without coma Status: Acute Assessment and Plan: Status post DKA protocols treated in ICU patient transferred to medical floor Continue Lantus insulin sliding scale added metformin pending confirmation of home medication. (2) Diabetes mellitus: Code(s): E11.9 - Type 2 diabetes mellitus without complications Status: Acute Assessment and Plan: Continue Lantus and insulin sliding scale and adjust as needed Pending clarification of home medication (3) Essential hypertension: Code(s): I10 - Essential (primary) hypertension Status: Acute Assessment and Plan: Resume metoprolol and WALDEMAR-inhibitor. Will resume Norvasc and Imdur as blood pressure allows (4) CAD (coronary artery disease): Code(s): I25.10 - Atherosclerotic heart disease of [place] coronary artery without angina pectoris Status: Acute Assessment and Plan: Continue aspirin Plavix Resume Imdur lisinopril and metoprolol as allowed by blood pressure (5) Dyslipidemia: Code(s): E78.5 - Hyperlipidemia, unspecified Status: Acute Assessment and Plan: Continue Zocor (6) Acute kidney injury: Code(s): N17.9 - Acute kidney failure, unspecified Status: Acute Assessment and Plan: Most likely related to dehydration improved renal ultrasound no significant finding (7) Dehydration: Code(s): E86.0 - Dehydration Status: Acute Assessment and Plan: Resolved (8) Hip pain: Code(s): M25.559 - Pain in unspecified hip Status: Acute Assessment and Plan: Patient complains of hip pain on walking. Likely from arthritis X-ray left hip IMPRESSION: 1. Mild bilateral hip osteoarthritis. 2. 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 2. 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 Subjective Date/time seen: 07/28/21 10:48 Interval history: 86 years old female with past medical history of hypertension diabetes on insulin presented to the hospital with generalized weakness increased urination patient was found to have a DKA was treated in ICU with DKA protocol patient condition improved she was started on Lantus and insulin sliding scale patient has episodes of hypoglycemia and hyperglycemia her blood sugar is labile blood sugars better controlled Patient is sleepy today CT scan of the head was negative Patient denies fever headache chest pain shortness of breath I am seeing the patient for diabetes Exam Narrative: Alert Chest no wheeze crackles Abdomen nontender nondistended CVS S1 + S2 Lower extremity edema Objective Data Vital Signs Vital Signs: Vital Signs - 24 hr 07/27/21 14:00 07/27/21 20:15 07/27/21 22:00 Temperature 98.2 F 97.3 F L Pulse Rate 70 82 79 Respiratory Rate 20 18 18 Blood Pressure 170/82 H 182/79 H Pulse Oximetry 98 96 96 07/27/21 22:16 07/28/21 05:37 07/28/21 08:00 Temperature 97.5 F L Pulse Rate 82 63 58 L Respiratory Rate 18 Blood Pressure 147/67 H 144/59 H Pulse Oximetry 95 07/28/21 10:18 Temperature Pulse Rate 61 Respiratory Rate Blood Pressure Pulse Oximetry Intake/Output Intake/Output: Intake & Output 07/25/21 07/26/21 07/27/21 07/28/21 23:59 23:59 23:59 23:59 Intake Total 5262 1889
[2021-07-28 11:27] LABS: Glucose Point of Care 248 mg/dl (65-105)
[2021-07-28] MEDS: INSULIN ASPART (*BKC) 100 UNITS/ML SUB-Q ×3 (13:01→21:11)
--- NOTE | 2021-07-28 13:13 | PCPTNOTE ---
Patient refused treatment this session due to wanting to finish eating lunch.
[2021-07-28 16:49] LABS: Glucose Point of Care 257 mg/dl (65-105)
[2021-07-28] MEDS: metFORMIN HCL 500 MG TABLET 1000 MG PO (17:44)
[2021-07-28] MEDS: PREGABALIN (*CRX) 75 MG CAPSULE 150 MG PO (21:06)
[2021-07-28] MEDS: SIMVASTATIN 10 MG TABLET PO (21:07)
[2021-07-28] MEDS: DULoxetine HCL 20 MG CAPSULE.DR PO (21:07)
[2021-07-28] MEDS: INSULIN GLARGINE (*BKC) 100 UNITS/ML 20 UNITS SUB-Q (21:11)
[2021-07-28 21:47] LABS: Glucose Point of Care 238 mg/dl (65-105)
[2021-07-29 03:45] VITALS: BP 182/80; PULSE 62; RESP 18; TEMP 36.2; O2SAT 93
[2021-07-29] MEDS: PREGABALIN (*CRX) 75 MG CAPSULE PO ×3 (06:14→17:13)
[2021-07-29 07:20] LABS: Basophils Percent Auto 0.8 % (0.2-1.2); Eosinophils Absolute Auto 0.4 K/mm3 (0-0.3); Eosinophils Percent Auto 7.4 % (0-4.4); Hematocrit 30.2 % (37.0-47.0); Hemoglobin 10.7 g/dL (12.0-15.0); Immature Granulocyte Absolute 0.01 K/mm3 (0.00-0.031); Immature Granulocyte Percent A 0.2 % (0-0.5); Lymphocytes Absolute Auto 2.18 K/mm3 (0.9-3.2); Lymphocytes Percent Auto 42.7 % (18.3-44.2); Mean Corpuscular HGB Conc 35.4 g/dl (32-36); Mean Corpuscular Hemoglobin 34.9 pg (26-34); Mean Corpuscular Volume 98.4 fl (80-100); Mean Platelet Volume 10.6 fl (7.4-10.4); Monocytes Absolute Auto 0.6 K/mm3 (0.1-0.6); Monocytes Percent Auto 12.1 % (2.6-8.5); Neutrophils Absolute Auto 1.9 K/mm3 (1.3-6.7); Neutrophils Percent Auto 36.8 % (45.5-73.1); Platelet Count Result 236 k/mm3 (150-375); Red Blood Count 3.07 M/mm3 (4.2-5.4); Red Cell Distribution Width 15.2 % (11.5-14.5); White Blood Count 5.1 K/mm3 (4.5-10.0)
[2021-07-29 07:35] LABS: Alanine Aminotransferase 19 U/L (4-35); Alkaline Phosphatase 46 U/L (38-126); Anion Gap 4 mmol/L (8-16); Aspartate Amino Transferase 31 U/L (14-36); Bilirubin,Total 0.5 mg/dL (0.2-1.3); Blood Urea Nitrogen 23 mg/dL (7-17); Calcium 8.3 mg/dL (8.4-10.2); Carbon Dioxide 31 mmol/L (22-30); Chloride 100 mmol/L (98-107); Estimated CRCL calculation 41 ml/min; Estimated Glomerular Filt Rate > 60; Glucose 94 mg/dL (65-110); Potassium 3.5 mmol/L (3.4-5.0); Sodium 135 mmol/L (137-145)
[2021-07-29 08:00] LABS: Glucose Point of Care 95 mg/dl (65-105)
[2021-07-29 09:01] VITALS: PULSE 78
[2021-07-29] MEDS: lisinopriL 10 MG TABLET PO (09:01)
[2021-07-29] MEDS: OMEGA 3 POLYUNSAT FATTY ACIDS 1 GM CAP 2 GM PO (09:01)
[2021-07-29] MEDS: FENOFIBRATE 160 MG TABLET PO (09:01)
[2021-07-29] MEDS: HEPARIN SODIUM 5,000 UNITS/ML VIAL 5000 UNITS SUB-Q ×2 (09:01→21:32)
[2021-07-29] MEDS: CHOLECALCIFEROL 1,000 UNITS TABLET 5000 UNITS PO (09:01)
[2021-07-29] MEDS: amLODIPine BESYLATE 2.5 MG TABLET PO (09:01)
[2021-07-29] MEDS: CLOPIDOGREL BISULFATE 75 MG TABLET PO (09:01)
[2021-07-29] MEDS: METOPROLOL TARTRATE 50 MG TAB PO ×2 (09:01→21:31)
[2021-07-29] MEDS: metFORMIN HCL 500 MG TABLET 1000 MG PO ×2 (09:01→17:13)
[2021-07-29] MEDS: OPTI-GEN TAB 1 TABLET PO (09:01)
[2021-07-29] MEDS: ASPIRIN 81 MG CHEWABLE TABLET PO (09:01)
--- NOTE | 2021-07-29 09:11 | PC.NURSE ---
Patient has purse and wallet at bedside. I asked to count her guajardo, which she allowed. Patient has $94 (3 $20 bills, 1 $10 bill, 3 $5 bills, and 9 $1 bills). Patient stated she had 6 $20 bills when she came to the hospital.
[2021-07-29 11:59] LABS: Glucose Point of Care 409 mg/dl (65-105)
--- NOTE | 2021-07-29 11:59 | PM.DS ---
DS: Admitting Diagnosis Discharge Date 07/29/2021 Admitting Diagnosis DKA DS: Discharge Diagnosis Discharge Diagnosis (1) DKA (diabetic ketoacidosis): Qualifiers: Diabetes mellitus complication detail: without coma Diabetes mellitus type: other specified (including AUDREY) Qualified Code(s): E13.10 - Other specified diabetes mellitus with ketoacidosis without coma Code(s): E11.10 - Type 2 diabetes mellitus with ketoacidosis without coma Status: Acute Assessment and Plan: Resolved Status post DKA protocols treated in ICU patient transferred to medical floor Home medication was confirmed patient will be discharged on home medication. (2) Diabetes mellitus: Code(s): E11.9 - Type 2 diabetes mellitus without complications Status: Acute Assessment and Plan: Continue Lantus metformin Patient will be discharged on home medication (3) Essential hypertension: Code(s): I10 - Essential (primary) hypertension Status: Acute Assessment and Plan: Resume home meds (4) CAD (coronary artery disease): Code(s): I25.10 - Atherosclerotic heart disease of [place] coronary artery without angina pectoris Status: Acute Assessment and Plan: Continue aspirin Plavix Resume Imdur lisinopril and metoprolol monitor blood pressure twice a day and notify PCP (5) Dyslipidemia: Code(s): E78.5 - Hyperlipidemia, unspecified Status: Acute Assessment and Plan: Continue Zocor (6) Acute kidney injury: Code(s): N17.9 - Acute kidney failure, unspecified Status: Acute Assessment and Plan: Most likely related to dehydration improved renal ultrasound no significant finding (7) Dehydration: Code(s): E86.0 - Dehydration Status: Acute Assessment and Plan: Resolved (8) Hip pain: Code(s): M25.559 - Pain in unspecified hip Status: Acute Assessment and Plan: Patient complains of hip pain on walking. Likely from arthritis X-ray left hip IMPRESSION: 1. Mild bilateral hip osteoarthritis. 2. 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 2. 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 DS: Summary Hospital Course Hospital Course: Patient was admitted to the hospital generalized weakness hip pain was found to have DKA was treated in ICU with DKA protocol her condition improved, patient will be discharged on home dose of insulin, monitor Accu-Chek as outpatient, follow-up with PCP. Monitor blood pressure twice a day and follow-up with PCP Time Spent with Patient Time attestation: Total time spent providing and/or coordinating discharge services: Exam Narrative: Alert Chest no wheeze crackles Abdomen nontender nondistended CVS S1 + S2 Lower extremity edema DS: Data Data Completed and Pending Labs on day of discharge: Labs from last 24 hours 07/29/21 07/29/21 07/29/21 11:55 07:53 06:59 WBC RBC Hgb Hct MCV MCH MCHC RDW Plt Count MPV Immature Gran % (Auto) Neut % (Auto) Lymph % (Auto) [place] % (Auto) Eos % (Auto) Baso % (Auto) Lymph # (Auto) [place] # (Auto) Eos # (Auto) Baso # (Auto) Abs Immat Gran (auto) Absolute Neuts (auto) Absolute Nucleated RBC Nucleated RBC % Sodium 135 L Potassium 3.5 Chloride 100 Carbon Dioxide 31 H Anion Gap 4 L BUN 23 H Creatinine 0.80 Estim Creat Clear Calc 41 Estimated GFR > 60 Glucose 94 POC Capillary Glucose 409 H 95 Calcium 8.3 L Total Bilirubin 0.5 AST 31 ALT 19 Alkaline Phosphatase 46 Tot
[2021-07-29 12:17] LABS: Glucose Point of Care 411 mg/dl (65-105)
[2021-07-29] MEDS: INSULIN ASPART (*BKC) 100 UNITS/ML 10 UNITS SUB-Q (12:42)
[2021-07-29] MEDS: INSULIN GLARGINE (*BKC) 100 UNITS/ML 20 UNITS SUB-Q ×2 (12:43→22:02)
[2021-07-29 14:00] VITALS: BP 144/55; PULSE 62; RESP 18; TEMP 36.3; O2SAT 97
--- NOTE | 2021-07-29 14:10 | PCOTNOTE ---
Attempted to see patient this pm, however patient was with RN and also patient advocate Chelo was waiting to speak with patient.
[2021-07-29 14:14] LABS: Glucose Point of Care 338 mg/dl (65-105)
[2021-07-29 17:23] LABS: Glucose Point of Care 186 mg/dl (65-105)
--- NOTE | 2021-07-29 17:59 | PCPTNOTE ---
The patient treatment was not able to be completed. Will plan to continue treatment per plan of care.
[2021-07-29 21:31] VITALS: PULSE 62
[2021-07-29] MEDS: SIMVASTATIN 10 MG TABLET PO (21:31)
[2021-07-29] MEDS: DULoxetine HCL 20 MG CAPSULE.DR PO (21:31)
[2021-07-29] MEDS: PREGABALIN (*CRX) 75 MG CAPSULE 150 MG PO (21:34)
[2021-07-29 21:44] VITALS: BP 153/66; PULSE 60; RESP 16; TEMP 36.1; O2SAT 96
[2021-07-29 21:54] LABS: Glucose Point of Care 307 mg/dl (65-105)
[2021-07-29] MEDS: INSULIN ASPART (*BKC) 100 UNITS/ML SUB-Q (22:03)
[2021-07-30] MEDS: PREGABALIN (*CRX) 75 MG CAPSULE PO ×3 (05:34→16:44)
[2021-07-30 05:41] VITALS: BP 126/55; PULSE 62; RESP 16; TEMP 36; O2SAT 96
[2021-07-30] MEDS: GLUCOSE ORAL GEL 15 GM OF GLUCSE IN 37.5 GM TUBE PO (05:50)
[2021-07-30] MEDS: DEXTROSE 50% 25 GM/50 ML SYRINGE IV PUSH (06:14)
[2021-07-30 07:18] LABS: Basophils Percent Auto 0.6 % (0.2-1.2); Eosinophils Absolute Auto 0.2 K/mm3 (0-0.3); Hematocrit 34.1 % (37.0-47.0); Hemoglobin 11.9 g/dL (12.0-15.0); Immature Granulocyte Absolute 0.02 K/mm3 (0.00-0.031); Immature Granulocyte Percent A 0.3 % (0-0.5); Lymphocytes Absolute Auto 1.31 K/mm3 (0.9-3.2); Lymphocytes Percent Auto 19.7 % (18.3-44.2); Mean Corpuscular HGB Conc 34.9 g/dl (32-36); Mean Corpuscular Hemoglobin 35.2 pg (26-34); Mean Corpuscular Volume 100.9 fl (80-100); Mean Platelet Volume 10.8 fl (7.4-10.4); Monocytes Absolute Auto 0.7 K/mm3 (0.1-0.6); Monocytes Percent Auto 10.7 % (2.6-8.5); Neutrophils Absolute Auto 4.4 K/mm3 (1.3-6.7); Neutrophils Percent Auto 65.7 % (45.5-73.1); Platelet Count Result 249 k/mm3 (150-375); Red Blood Count 3.38 M/mm3 (4.2-5.4); Red Cell Distribution Width 15.4 % (11.5-14.5); White Blood Count 6.7 K/mm3 (4.5-10.0)
[2021-07-30 07:38] LABS: Glucose Point of Care 31 mg/dl (65-105)
[2021-07-30 07:38] LABS: Glucose Point of Care 33 mg/dl (65-105)
[2021-07-30 07:38] LABS: Glucose Point of Care 92 mg/dl (65-105)
[2021-07-30 07:40] LABS: Alanine Aminotransferase 21 U/L (4-35); Albumin Level 3.4 g/dL (3.5-5.1); Alkaline Phosphatase 55 U/L (38-126); Anion Gap 7 mmol/L (8-16); Aspartate Amino Transferase 32 U/L (14-36); Bilirubin,Total 0.5 mg/dL (0.2-1.3); Blood Urea Nitrogen 23 mg/dL (7-17); Calcium 8.6 mg/dL (8.4-10.2); Carbon Dioxide 32 mmol/L (22-30); Chloride 96 mmol/L (98-107); Estimated CRCL calculation 41 ml/min; Estimated Glomerular Filt Rate > 60; Glucose 225 mg/dL (65-110); Potassium 3.5 mmol/L (3.4-5.0); Sodium 135 mmol/L (137-145)
[2021-07-30] MEDS: amLODIPine BESYLATE 2.5 MG TABLET PO (08:19)
[2021-07-30] MEDS: ASPIRIN 81 MG CHEWABLE TABLET PO (08:19)
[2021-07-30] MEDS: HEPARIN SODIUM 5,000 UNITS/ML VIAL 5000 UNITS SUB-Q ×2 (08:20→21:12)
[2021-07-30] MEDS: CLOPIDOGREL BISULFATE 75 MG TABLET PO (08:20)
[2021-07-30] MEDS: CHOLECALCIFEROL 1,000 UNITS TABLET 5000 UNITS PO (08:20)
[2021-07-30] MEDS: FENOFIBRATE 160 MG TABLET PO (08:20)
[2021-07-30 08:21] VITALS: PULSE 70
[2021-07-30] MEDS: metFORMIN HCL 500 MG TABLET 1000 MG PO ×2 (08:21→16:45)
[2021-07-30] MEDS: lisinopriL 10 MG TABLET PO (08:21)
[2021-07-30] MEDS: METOPROLOL TARTRATE 50 MG TAB PO ×2 (08:21→21:12)
[2021-07-30] MEDS: OPTI-GEN TAB 1 TABLET PO (08:22)
[2021-07-30] MEDS: OMEGA 3 POLYUNSAT FATTY ACIDS 1 GM CAP 2 GM PO (08:22)
[2021-07-30] MEDS: INSULIN ASPART (*BKC) 100 UNITS/ML SUB-Q (08:43)
[2021-07-30 08:58] LABS: Glucose Point of Care 234 mg/dl (65-105)
--- NOTE | 2021-07-30 09:11 | PM.IMPN ---
Progress Note: A&P Assessment and Plan (1) DKA (diabetic ketoacidosis): Qualifiers: Diabetes mellitus complication detail: without coma Diabetes mellitus type: other specified (including AUDREY) Qualified Code(s): E13.10 - Other specified diabetes mellitus with ketoacidosis without coma Code(s): E11.10 - Type 2 diabetes mellitus with ketoacidosis without coma Status: Acute Assessment and Plan: Resolved Status post DKA protocols treated in ICU patient transferred to medical floor Medication adjusted today as patient has episodes of hypoglycemia (2) Diabetes mellitus: Code(s): E11.9 - Type 2 diabetes mellitus without complications Status: Acute Assessment and Plan: Decrease the dose of Lantus monitor If patient developed episodes of hypoglycemia recommend to follow hypoglycemia protocol recheck Accu-Chek and 1 hour and give at at least 50% of this scheduled does if patient is going to eat (3) Essential hypertension: Code(s): I10 - Essential (primary) hypertension Status: Acute Assessment and Plan: Resume home meds (4) CAD (coronary artery disease): Code(s): I25.10 - Atherosclerotic heart disease of [place] coronary artery without angina pectoris Status: Acute Assessment and Plan: Continue aspirin Plavix Resume Imdur lisinopril and metoprolol monitor blood pressure twice a day and notify PCP (5) Dyslipidemia: Code(s): E78.5 - Hyperlipidemia, unspecified Status: Acute Assessment and Plan: Continue Zocor (6) Acute kidney injury: Code(s): N17.9 - Acute kidney failure, unspecified Status: Acute Assessment and Plan: Most likely related to dehydration improved renal ultrasound no significant finding (7) Dehydration: Code(s): E86.0 - Dehydration Status: Acute Assessment and Plan: Resolved (8) Hip pain: Code(s): M25.559 - Pain in unspecified hip Status: Acute Assessment and Plan: Patient complains of hip pain on walking. Likely from arthritis X-ray left hip IMPRESSION: 1. Mild bilateral hip osteoarthritis. 2. 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 2. 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 Subjective Date/time seen: 07/30/21 09:11 Interval history: 86 years old female with past medical history of hypertension diabetes on insulin presented to the hospital with generalized weakness increased urination patient was found to have a DKA was treated in ICU with DKA protocol patient condition improved she was started on Lantus and insulin sliding scale patient has episodes of hypoglycemia and hyperglycemia her blood sugar is labile blood sugars better controlled Patient feeling weak today as she has episodes of hypoglycemia I decreased the dose of Lantus from 20 units to 15 units Patient has fragile diabetes very sensitive to changes if patient developed episodes of hypoglycemia recommend to follow hypoglycemia protocol and recommend to recheck in 1 hour and give 50% of the dose of the scheduled insulin Patient denies fever headache chest pain shortness of breath I am seeing the patient for diabetes Exam Narrative: Alert Chest no wheeze crackles Abdomen nontender nondistended CVS S1 + S2 Lower extremity edema Objective Data Vital Signs Vital Signs: Vital Signs - 24 hr 07/29/21 14:00 07/29/21 21:31 07/29/21 21:44 Temperature 97.3 F L 97.0 F L Pulse Rate 62 62 60 Respiratory Rate 18 16 Blood Pressure 144/55 H 153/66 H Pulse Oximetry 97 96 07/30/21 05:41 07/30/21 08:21 Temperature 96.8 F L Pulse Rate 62 70
[2021-07-30] MEDS: INSULIN ASPART (*BKC) 100 UNITS/ML 12 UNITS SUB-Q (12:45)
[2021-07-30 13:01] LABS: Glucose Point of Care 444 mg/dl (65-105)
[2021-07-30 14:00] VITALS: BP 141/55; PULSE 67; RESP 16; TEMP 36.7; O2SAT 98
[2021-07-30 17:08] LABS: Glucose Point of Care 121 mg/dl (65-105)
--- NOTE | 2021-07-30 19:40 | PC.NURSE ---
Spoke with Dr. Mattson about consulting patients home flight software test engineer Atif Carbajal at [facility] for her blood glucose levels per family/patient request. He states he will try to contact this MD tomorrow to update her on patients stay.
[2021-07-30 21:12] VITALS: PULSE 71
[2021-07-30] MEDS: SIMVASTATIN 10 MG TABLET PO (21:12)
[2021-07-30] MEDS: PREGABALIN (*CRX) 75 MG CAPSULE 150 MG PO (21:13)
[2021-07-30] MEDS: DULoxetine HCL 20 MG CAPSULE.DR PO (21:14)
[2021-07-30] MEDS: INSULIN GLARGINE (*BKC) 100 UNITS/ML 15 UNITS SUB-Q (21:47)
[2021-07-30 21:59] LABS: Glucose Point of Care 237 mg/dl (65-105)
[2021-07-30 22:00] VITALS: BP 171/79; PULSE 68; RESP 18; TEMP 36.4; O2SAT 98
[2021-07-31] MEDS: PREGABALIN (*CRX) 75 MG CAPSULE PO ×2 (05:36→11:28)
[2021-07-31 06:00] VITALS: BP 150/66; PULSE 63; RESP 16; TEMP 36.1; O2SAT 98
[2021-07-31 08:05] LABS: Glucose Point of Care 109 mg/dl (65-105)
--- NOTE | 2021-07-31 08:54 | PM.DS ---
DS: Admitting Diagnosis Discharge Date 07/31/2021 Admitting Diagnosis DKA DS: Discharge Diagnosis Discharge Diagnosis (1) DKA (diabetic ketoacidosis): Qualifiers: Diabetes mellitus complication detail: without coma Diabetes mellitus type: other specified (including AUDREY) Qualified Code(s): E13.10 - Other specified diabetes mellitus with ketoacidosis without coma Code(s): E11.10 - Type 2 diabetes mellitus with ketoacidosis without coma Status: Acute Assessment and Plan: Resolved Status post DKA protocols treated in ICU patient transferred to medical floor Hypoglycemia resolved Resume home medication (2) Diabetes mellitus: Code(s): E11.9 - Type 2 diabetes mellitus without complications Status: Acute Assessment and Plan: Continue Lantus continue home medication Follow-up with endocrinology as outpatient (3) Essential hypertension: Code(s): I10 - Essential (primary) hypertension Status: Acute Assessment and Plan: Resume home meds (4) CAD (coronary artery disease): Code(s): I25.10 - Atherosclerotic heart disease of [place] coronary artery without angina pectoris Status: Acute Assessment and Plan: Continue aspirin Plavix Resume Imdur lisinopril and metoprolol monitor blood pressure twice a day and notify PCP (5) Dyslipidemia: Code(s): E78.5 - Hyperlipidemia, unspecified Status: Acute Assessment and Plan: Continue Zocor (6) Acute kidney injury: Code(s): N17.9 - Acute kidney failure, unspecified Status: Acute Assessment and Plan: Most likely related to dehydration improved renal ultrasound no significant finding (7) Dehydration: Code(s): E86.0 - Dehydration Status: Acute Assessment and Plan: Resolved (8) Hip pain: Code(s): M25.559 - Pain in unspecified hip Status: Acute Assessment and Plan: Patient complains of hip pain on walking. Likely from arthritis X-ray left hip IMPRESSION: 1. Mild bilateral hip osteoarthritis. 2. 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 2. 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 DS: Summary Hospital Course Hospital Course: Patient was admitted to the hospital with generalized weakness and head pain was found to have a DKA patient was admitted to ICU was treated with DKA protocol her condition improved patient was transferred to medical floor patient had episodes of hypoglycemia and hypoglycemic medication was adjusted patient currently is back on her home regimen patient to follow-up with Endocrine and PCP as outpatient Have pain most likely related to arthritis follow-up with PCP avoid narcotics Time Spent with Patient Time attestation: Total time spent providing and/or coordinating discharge services: Exam Narrative: Alert Chest no wheeze crackles Abdomen nontender nondistended CVS S1 + S2 Lower extremity edema DS: Data Data Completed and Pending Labs on day of discharge: Labs from last 24 hours 07/31/21 07/30/21 07/30/21 07:55 21:11 16:36 POC Capillary Glucose 109 H 237 H 121 H 07/30/21 07/30/21 12:07 08:11 POC Capillary Glucose 444 H 234 H Discharge Plan Discharge Attending physician on discharge: Felisha Zamora M.A. Consulting providers: Sarmad Whitten Discharging Clinician: Felisha Zamora M.A. Patient Disposition: Home Health Service Activity: as tolerated Diet: heart healthy and diabetic Discharge Instructions: Per Care Coordination. Patient to have [facility] for RN/PT/OT eval and treat [phone]. RN please fax discharge instructions to [phone] Patient Instructions: Antibiotic Form, H
[2021-07-31] MEDS: metFORMIN HCL 500 MG TABLET 1000 MG PO (10:04)
[2021-07-31] MEDS: CLOPIDOGREL BISULFATE 75 MG TABLET PO (10:04)
[2021-07-31] MEDS: lisinopriL 10 MG TABLET PO (10:04)
[2021-07-31] MEDS: OPTI-GEN TAB 1 TABLET PO (10:05)
[2021-07-31] MEDS: amLODIPine BESYLATE 2.5 MG TABLET PO (10:05)
[2021-07-31 10:06] VITALS: PULSE 65
[2021-07-31] MEDS: OMEGA 3 POLYUNSAT FATTY ACIDS 1 GM CAP 2 GM PO (10:06)
[2021-07-31] MEDS: METOPROLOL TARTRATE 50 MG TAB PO (10:06)
[2021-07-31] MEDS: ASPIRIN 81 MG CHEWABLE TABLET PO (10:06)
[2021-07-31] MEDS: FENOFIBRATE 160 MG TABLET PO (10:06)
[2021-07-31] MEDS: HEPARIN SODIUM 5,000 UNITS/ML VIAL 5000 UNITS SUB-Q (10:06)
[2021-07-31 12:00] LABS: Glucose Point of Care 217 mg/dl (65-105)
[2021-07-31] MEDS: INSULIN ASPART (*BKC) 100 UNITS/ML SUB-Q (12:10)
== END 2021-07-31 13:25 | disposition home health service (06) | DRG 638 ==
LOC: ANHED 07-25 00:35 → ANHICU 07-25 01:51 → ANH3MEDSUR 07-28 14:33 → ANHICU 08-02 13:07
PROVIDERS: Internal Medicine; Admitting Provider Internal Medicine; Emergency Provider Emergency Medicine; PCP Family Medicine; Visit Provider Internal Medicine
DX: E11.10 Type 2 diabetes mellitus with ketoacidosis without coma (principal); N17.9 Acute kidney failure, unspecified; R44.2 Other hallucinations; Z88.0 Allergy status to penicillin; Z79.4 Long term (current) use of insulin; I25.10 Atherosclerotic heart disease of native coronary artery without angina pectoris; I10 Essential (primary) hypertension; E78.5 Hyperlipidemia, unspecified; Z66 Do not resuscitate; E86.0 Dehydration; F17.210 Nicotine dependence, cigarettes, uncomplicated; M16.0 Bilateral primary osteoarthritis of hip
CPT/HCPCS: 36415; 36600; 70450; 71045; 73502; 76775; 80048; 80053; 81001; 82010; 82375; 82550; 82805; 82948; 83036; 83050; 83735; 84100; 85025; 85027; 96365; 96366; 96372; 96375; 96376; 97110; 97162; 97165; 97535; 99285; A9270; G0378; J1644; J1815; J2405; J3480; J7030; J7040